=== PATIENT | female | born 1970 | race American Indian/Alaskan Native ===

== ENCOUNTER 2018-11-30 02:31 | Emergency (ER) | payer BC ==
[2018-11-30 02:38] VITALS: BP 126/69
[2018-11-30 02:57] LABS: Basophils # (Auto) 0.1 K/mm3 (0.0-0.1); Basophils % (Auto) 1.2 % (0.0-1.8); Eosinophils # (Auto) 0.1 K/mm3 (0.0-0.4); Eosinophils % (Auto) 1.9 % (0.0-4.3); Hematocrit 35.7 % (30.3-42.9); Lymphocytes # (Auto) 2.2 K/mm3 (1.2-5.4); Lymphocytes % (Auto) 41.6 % (13.4-35.0); Mean Corpuscular HGB Conc 34 % (30-34); Mean Corpuscular Volume 91 fl (79-97); Monocytes # (Auto) 0.4 K/mm3 (0.0-0.8); Monocytes % (Auto) 8.1 % (0.0-7.3); Platelet Count 318 K/mm3 (140-440); Red Blood Count 3.91 M/mm3 (3.65-5.03); Red Cell Distribution Width 15.1 % (13.2-15.2)
[2018-11-30 03:12] LABS: Alanine Aminotransferase 10 units/L (7-56); Albumin 4.3 g/dL (3.9-5); BUN/Creatinine Ratio 22; Blood Urea Nitrogen 11 mg/dL (7-17); Calcium 9.1 mg/dL (8.4-10.2); Hemolysis Index 13
[2018-11-30 03:47] LABS: Bilirubin,Urine NEG (Negative); Blood,Urine NEG (Negative); Color,Urine Yellow (Yellow); Mucus,Urine FEW /HPF; Protein,Urine <15 mg/dL mg/dL (Negative)
[2018-11-30 03:56] LABS: HCG Qualitative,Urine Negative (Negative)
--- NOTE | 2018-11-30 04:26 | XRay Report ---
FINAL REPORT EXAM: XR ABDOMEN 1V AP HISTORY: abdominal fullness TECHNIQUE: Two upright AP views of the abdomen were submitted. FINDINGS: The bowel gas pattern is unremarkable. Free air is not seen. There is no evidence of bowel distention . The skeletal structures do not show any acute changes. IMPRESSION: Within normal limits.
--- NOTE | 2018-11-30 04:52 | Emergency Department Report ---
ED Abdominal Pain HPI - General Chief Complaint: Abdominal Pain Stated Complaint: ABD PAIN Time Seen by Provider: 11/30/18 03:43 Source: patient Mode of arrival: Ambulatory Limitations: No Limitations - History of Present Illness Initial Comments: 48-year-old -[place] female comes in complaining of upper abdominal fullness as if she has to have a bowel movement. Patient reports that she currently takes MiraLAX on a daily basis and will usually have a normal bowel movement. Patient reports that she seen her primary care provider Dr. Perry On Wednesday afternoon. Patient denies any abdominal pain. She said this fullness feeling started on Wednesday. Patient reports no dysuria no urinary frequency no urinary urgency no diarrhea. Patient reports she has a past medical history of hypertension. MD Complaint: other (abdominal fullness.) -: days(s) (3) Quality: fullness Consistency: constant Improves With: nothing Worsens With: nothing Associated Symptoms: denies other symptoms Treatments Prior to Arrival: other (MiraLAX) - Related Data LMP Date: 11/03/18 Allergies Allergy/AdvReac Type Severity Reaction Status Date / Time No Known Allergies Allergy Unverified 12/07/14 08:48 ED Review of Systems ROS: Stated complaint: ABD PAIN Other details as noted in HPI Comment: All other systems reviewed and negative Constitutional: denies: chills, fever Gastrointestinal: other (abdominal fullness). denies: abdominal pain, nausea, vomiting, diarrhea Genitourinary: denies: urgency, dysuria, discharge ED Past Medical Hx - Past Medical History Previous Medical History?: Yes Hx Hypertension: Yes - Surgical History Past Surgical History?: No - Social History Smoking Status: Never Smoker Substance Use Type: None ED Physical Exam - General Limitations: No Limitations General appearance: alert, in no apparent distress - Head Head exam: Present: atraumatic, normocephalic - Eye Eye exam: Present: normal appearance - ENT ENT exam: Present: mucous membranes moist - Neck Neck exam: Present: normal inspection - Respiratory Respiratory exam: Present: normal lung sounds bilaterally. Absent: respiratory distress - Cardiovascular Cardiovascular Exam: Present: regular rate, normal rhythm. Absent: systolic mu rmur, diastolic murmur, rubs, gallop - GI/Abdominal GI/Abdominal exam: Present: soft, normal bowel sounds - Extremities Exam Extremities exam: Present: normal inspection - Back Exam Back exam: Present: normal inspection - Neurological Exam Neurological exam: Present: alert, oriented X3 - Psychiatric Psychiatric exam: Present: normal affect, normal mood - Skin Skin exam: Present: warm, dry, intact, normal color. Absent: rash ED Course Vital Signs 11/30/18 02:33 Temperature 97.7 F Pulse Rate 75 Respiratory 18 Rate Blood Pressure 126/69 O2 Sat by Pulse 99 Oximetry ED Medical Decision Making - Lab Data Result diagrams: 11/30/18 02:43 11/30/18 02:43 - Radiology Data Radiology results: report reviewed FINAL REPORT EXAM: XR ABDOMEN 1V AP HISTORY: abdominal fullness TECHNIQUE: Two upright AP views of the abdomen were submitted. FINDINGS: The bowel gas pattern is unremarkable. Free air is not seen. There is no evidence of bowel distention. The skeletal structures do not show any acute changes. IMPRESSION: Within normal limits. Transcribed By: RB Dictated By: MICHELLE CALDERON MD Electronically Authenticated By: MICHELLE CALDERON MD Signed Date/Time: 11/30/18425 DD/ 7 TD/TT: 11/30/18427 - Medical Decision Making Patient has been evaluated by this provider in fast track. Patient denies any abdominal pain nausea no vomiting or diarrhea. Urinalysis was ordered and is within normal limits. HCG negative KUB shows normal examination Patient needs to follow back up with her primary care provider. Critical care attestation.: If time is entered above; I have spent that time in minutes in the direct care of this critically ill patient, excluding procedure time. ED Disposition Clinical Impression: Abdominal fullness Disposition: DC-01 TO HOME OR SELFCARE Is pt being admited?: No Does the pt Need Aspirin: No Condition: Stable Instructions: Abdominal Pain (ED) Additional Instructions: Please follow-up with your primary care provider if his symptoms persist or gets worse. Referrals: PRIMARY CARE, [Primary Care Provider] - 3-5 Days GALINA PERRY MD [Staff Physician] - 3-5 Days Forms: Work/School Release Form(ED)
== END 2018-11-30 05:03 | disposition home or self-care (01) ==
LOC: ED 02:31
DX: R14.0 Abdominal distension (gaseous) (principal); I10 Essential (primary) hypertension
CPT/HCPCS: 36415; 74018; 80053; 81001; 81025; 85025; 99284

== ENCOUNTER 2019-01-13 08:50 | Outpatient (CLI) | payer BC ==
--- NOTE | 2019-01-13 11:04 | Mammography Report ---
BILATERAL DIGITAL SCREENING MAMMOGRAM with CAD: 01/13/19 08:50:00 CLINICAL: Routine screening. COMPARISON:12/16/15 an additional mammograms going back to 09/21/11 FINDINGS: The breasts are heterogeneously dense, which may obscure small masses. No mass, architectural distortion or suspicious calcifications. IMPRESSION: No mammographic evidence of malignancy. BI-RADS CATEGORY: 1 - - Negative RECOMMENDATION: Routine mammographic screening in one year. COMMENT: Patient follow-up letters are generated by our [employer] application.
== END 2019-01-13 08:51 | disposition home or self-care (01) ==
LOC: MAMMO 08:50
PROVIDERS: ATTEND Obstetrics & Gynecology
DX: Z12.31 Encounter for screening mammogram for malignant neoplasm of breast (principal); I10 Essential (primary) hypertension
CPT/HCPCS: 77067

== ENCOUNTER 2020-01-15 09:51 | Outpatient (CLI) | payer BC ==
--- NOTE | 2020-01-15 16:26 | Mammography Report ---
DIGITAL SCREENING MAMMOGRAM WITH CAD, 01/15/2020 INDICATION: Routine screening mammography. TECHNIQUE: Digital bilateral 2D mammography was obtained in the craniocaudal and mediolateral obliq ue projections. This examination was interpreted with the benefit of Computer-Aided Detection analysi s. COMPARISON: 01/13/2019 FINDINGS: Breast Density: The breasts are heterogeneously dense, which may obscure small masses. A right inner asymmetry on the CC view requires additional imaging. No architectural distortion or brown spicious calcifications of the right breast. There is no evidence of dominant mass, suspicious calcif ications or architectural distortion in the left breast. IMPRESSION: Right asymmetry requiring additional imaging. Recommend recall for a right CC spot compre ssion view and right breast ultrasound if needed. Follow up recommendation: Special View: Spot Category 0: Incomplete. Needs additional imaging evaluation and/or prior mammograms for comparison. A "normal" or negative report should not discourage follow up or biopsy of a clinically significant f inding. A written summary of these findings will be mailed to the patient. The patient will be entered into a mammography reporting system which will generate a reminder letter for the patient's next appointmen t at the appropriate interval. The [employer] recommends yearly mammograms starting at age 40 and continuing as l anne as a woman is in good health. Breast MRI is recommended for women with an approximate 20-25% or greater lifetime risk of breast cancer, including women with a strong family history of breast or ova nilton cancer or who have been treated for Hodgkin's disease. Signer Name: Edson Keith MD Signed: 01/15/2020 4:21 PM Workstation Name: [id number]
== END 2020-01-15 09:52 | disposition home or self-care (01) ==
LOC: MAMMO 09:51
PROVIDERS: ATTEND Obstetrics & Gynecology
DX: Z12.31 Encounter for screening mammogram for malignant neoplasm of breast (principal)
CPT/HCPCS: 77067

== ENCOUNTER 2021-01-21 11:15 | Outpatient (CLI) | payer BC ==
--- NOTE | 2021-01-21 17:09 | Mammography Report ---
DIGITAL SCREENING MAMMOGRAM, 01/21/2021 CLINICAL INFORMATION / INDICATION: Routine screening mammography. SCRN MAMMO TECHNIQUE: Digital bilateral 2D mammography was obtained in the craniocaudal and mediolateral obliqu e projections. COMPARISON: Prior mammograms 01/15/2020 and 01/13/2019 FINDINGS: Breast Density: The breasts are heterogeneously dense, which may obscure small masses. No dominant mass, suspicious calcifications, or architectural distortion in either breast. There has been no significant change compared with the prior examinations. IMPRESSION: No mammographic evidence of malignancy. Follow up recommendation: Routine yearly BI-RADS Category 1: Negative. A "normal" or negative report should not discourage follow up or biopsy of a clinically significant f inding. A written summary of these findings will be mailed to the patient. The patient will be entered into a mammography reporting system which will generate a reminder letter for the patient's next appointmen t at the appropriate interval. The [employer] recommends yearly mammograms starting at age 40 and continuing as l anne as a woman is in good health. Breast MRI is recommended for women with an approximate 20-25% or greater lifetime risk of breast cancer, including women with a strong family history of breast or ova [place] cancer or who have been treated for Hodgkin's disease. Signer Name: Khadijah Bradley MD Signed: 01/21/2021 5:05 PM Workstation Name: [id number]
== END 2021-01-21 11:16 | disposition home or self-care (01) ==
LOC: MAMMO 11:15
PROVIDERS: ATTEND Obstetrics & Gynecology
DX: Z12.31 Encounter for screening mammogram for malignant neoplasm of breast (principal); N64.89 Other specified disorders of breast
CPT/HCPCS: 77067

== ENCOUNTER 2022-01-23 10:10 | Outpatient (CLI) | payer BC | END 2022-01-23 10:11 | disposition home or self-care (01) | LOC: MAMMO 10:10 | PROVIDERS: ATTEND Obstetrics & Gynecology | DX: Z12.31 Encounter for screening mammogram for malignant neoplasm of breast (principal) | CPT/HCPCS: 77067 ==